=== PATIENT | male | born 1940 | race Caucasian/White ===

== ENCOUNTER 2017-04-23 20:04 | Inpatient (IN) | payer OTHER ==
[~2017-04-23] VITALS: Ht 172.7 cm; Wt 57.9 kg
[~2017-04-23 20:04] MED LIST: ADULT LOW DOSE81 M1 PO; ADVAIR 250/501 DISK IH; Advair HFA 115/21 IH; CEFTIN500 MG PO; HYZAAR 100-21 TABLET PO; LOSARTAN POTASS50 MG PO; PROVENTIL2.5 MG/3 M IH; SINGULAIR10 MG PO; SPIRIVA1 INHALATI IH; Singulair PO; Tylenol Regular Stre PO; Xopenex IH; Zithromax PO; predniSONE PO
[2017-04-23 21:14] LABS: HEMATOCRIT 45.7 % (38.0-50.0); HEMOGLOBIN 15.5 G/DL (12.5-16.6); MCH 31.4 PG (29.0-34.0); MCHC 33.9 G/DL (30.0-36.0); MCV 92.7 FL (86-99); PLATELET COUNT 191 K/uL (156-360); RBC DIS.WIDTH-CV 13.6 % (11.8-14.6); RBC DIS.WIDTH-SD 46.9 % (39-53); RED BLOOD COUNT 4.93 M/uL (4.00-5.50); WHITE BLOOD COUNT 27.3 K/uL (4.1-10.2)
[2017-04-23 21:30] LABS: CHLORIDE 90 MEQ/L (99-109); POTASSIUM 4.5 MEQ/L (3.7-5.4); SODIUM 130 MEQ/L (136-147)
[2017-04-23 21:36] LABS: CREATININE 1.3 MG/DL (0.6-1.3); GFR ESTIMATE (CALCULATED) 57 mL/min/ (58.99-99999); GLUCOSE 150 mg/dL (70-99); UREA NITROGEN (BUN) 25 mg/dL (9-23)
[2017-04-23 21:46] LABS: INTER. NORMALIZED RATIO 1.2
[2017-04-23 21:48] LABS: PTT 30.9 SEC (25-37)
[2017-04-23 22:06] LABS: TROP-I INTERPRETATION NEGATIVE; TROPONIN-I 0.02 ng/mL (0.0-0.30)
[2017-04-23] MEDS ORDERED: SINGULAIR10 MG PO (23:02)
[2017-04-23] MEDS ORDERED: ADVAIR 250/501 DISK IH (23:03)
[2017-04-23] MEDS ORDERED: ALLEGRA ALLERG180 MG PO (23:05)
[2017-04-23] MEDS ORDERED: SYSTANE 0.3-0.1 EACH BOTH EYES (23:05)
[2017-04-23] MEDS ORDERED: VITAMIN E400 UNIT PO (23:06)
[2017-04-23] MEDS ORDERED: SYSTANE GEL10 GM BOTH EYES (23:06)
[2017-04-23] MEDS ORDERED: GARLIC1000 MG PO (23:06)
[2017-04-23] MEDS ORDERED: CENTRUM SILVER1 EAC3 PO (23:07)
[2017-04-23] MEDS ORDERED: GLUCOSAMINE &1 EAC1 PO (23:08)
[2017-04-23] MEDS ORDERED: OMEGA 3 500 SO1 EACH PO (23:08)
[2017-04-24 00:42] VITALS: BP 126/61
[2017-04-24 04:37] VITALS: BP 140/65
[2017-04-24 06:52] LABS: HEMATOCRIT 39.7 % (38.0-50.0); MCH 31.2 PG (29.0-34.0); MCHC 33.5 G/DL (30.0-36.0); MCV 93.2 FL (86-99); PLATELET COUNT 150 K/uL (156-360); RBC DIS.WIDTH-CV 13.8 % (11.8-14.6); RBC DIS.WIDTH-SD 46.5 % (39-53); RED BLOOD COUNT 4.26 M/uL (4.00-5.50)
[2017-04-24 06:53] LABS: HEMOGLOBIN 13.3 G/DL (12.5-16.6)
[2017-04-24 07:18] LABS: ALBUMIN 3.2 G/DL (3.2-4.8); ALKALINE PHOSPHATASE 68 IU/L (3-129); ALT (GPT) 12 IU/L (3-49); AST (GOT) 13 IU/L (2-34); CHLORIDE 98 MEQ/L (99-109); GFR ESTIMATE (CALCULATED) > 59 mL/min/ (58.99-99999); GLUCOSE 84 mg/dL (70-99); POTASSIUM 4.1 MEQ/L (3.7-5.4); SODIUM 137 MEQ/L (136-147); TOTAL BILIRUBIN 0.6 MG/DL (0.0-1.0); TOTAL PROTEIN 5.2 G/DL (6.4-8.3); UREA NITROGEN (BUN) 21 mg/dL (9-23)
[2017-04-24 07:47] VITALS: BP 98/57
[2017-04-24 10:46] LABS: HEMOGLOBIN A1c (GLYCOHEMOGLOB) 5.9 % (Below 5.7)
[2017-04-24 12:27] VITALS: BP 115/71
[2017-04-24 17:00] VITALS: BP 132/72
[2017-04-24 21:30] VITALS: BP 111/59
[2017-04-25] VITALS (9 sets, daily range): BP systolic 115–150; BP diastolic 64–102
[2017-04-25 07:07] LABS: BASOPHIL (%) 0.1 % (0-1); EOSINOPHIL (%) 0 % (0-5); HEMATOCRIT 40.2 % (38.0-50.0); HEMOGLOBIN 13.2 G/DL (12.5-16.6); IMMATURE GRANULOCYTE (%) 0.6 % (0.0-0.7); LYMPHOCYTE (%) 4.8 % (15-42); LYMPHOCYTE COUNT 0.4 K/uL (1.0-2.8); MCHC 32.8 G/DL (30.0-36.0); MCV 94.4 FL (86-99); MONOCYTE (%) 2.4 % (3-12); MONOCYTE COUNT 0.2 K/uL (0-0.8); NEUTROPHIL (%) 92.1 % (45-76); NEUTROPHIL COUNT 7.8 K/uL (1.8-6.4); PLATELET COUNT 143 K/uL (156-360); RBC DIS.WIDTH-CV 13.8 % (11.8-14.6); RBC DIS.WIDTH-SD 47.9 % (39-53); RED BLOOD COUNT 4.26 M/uL (4.00-5.50); WHITE BLOOD COUNT 8.4 K/uL (4.1-10.2)
[2017-04-25 07:41] LABS: CHLORIDE 101 MEQ/L (99-109); CREATININE 0.9 MG/DL (0.6-1.3); GFR ESTIMATE (CALCULATED) > 59 mL/min/ (58.99-99999); MAGNESIUM 1.8 mg/dl (1.3-2.7); POTASSIUM 4.5 MEQ/L (3.7-5.4); SODIUM 139 MEQ/L (136-147); UREA NITROGEN (BUN) 16 mg/dL (9-23)
[2017-04-25 07:43] LABS: GLUCOSE 158 mg/dL (70-99)
[2017-04-25 20:13] LABS: MAGNESIUM 1.9 mg/dl (1.3-2.7); POTASSIUM 4.3 MEQ/L (3.7-5.4)
[2017-04-25 20:14] LABS: TROP-I INTERPRETATION NEGATIVE; TROPONIN-I < 0.01 ng/mL (0.0-0.30)
[2017-04-25 21:23] LABS: THYROTROPIN (TSH) 0.15 MIU/L (0.4-5.5)
[2017-04-26] VITALS (9 sets, daily range): BP systolic 100–145; BP diastolic 63–93
[2017-04-26 03:42] LABS: TROP-I INTERPRETATION NEGATIVE; TROPONIN-I 0.01 ng/mL (0.0-0.30)
[2017-04-26 09:16] LABS: TROP-I INTERPRETATION NEGATIVE; TROPONIN-I < 0.01 ng/mL (0.0-0.30)
[2017-04-27 04:34] VITALS: BP 126/63
[2017-04-27 05:47] LABS: CHLORIDE 98 MEQ/L (99-109); CREATININE 0.9 MG/DL (0.6-1.3); GFR ESTIMATE (CALCULATED) > 59 mL/min/ (58.99-99999); GLUCOSE 148 mg/dL (70-99); SODIUM 138 MEQ/L (136-147); UREA NITROGEN (BUN) 28 mg/dL (9-23)
[2017-04-27 05:48] LABS: POTASSIUM 5.3 MEQ/L (3.7-5.4)
[2017-04-27 07:44] VITALS: BP 141/77
[2017-04-27 11:46] VITALS: BP 122/61
[2017-04-27 15:34] VITALS: BP 149/70
[2017-04-27 19:07] VITALS: BP 163/70
[2017-04-27 21:16] VITALS: BP 160/82
[2017-04-28] VITALS (7 sets, daily range): BP systolic 124–162; BP diastolic 66–80
[2017-04-28 06:24] LABS: CHLORIDE 99 MEQ/L (99-109); CREATININE 0.9 MG/DL (0.6-1.3); GFR ESTIMATE (CALCULATED) > 59 mL/min/ (58.99-99999); GLUCOSE 174 mg/dL (70-99); POTASSIUM 4.9 MEQ/L (3.7-5.4); SODIUM 140 MEQ/L (136-147); UREA NITROGEN (BUN) 31 mg/dL (9-23)
[2017-04-29 03:25] VITALS: BP 137/71
[2017-04-29 06:37] LABS: HEMATOCRIT 39.6 % (38.0-50.0); HEMOGLOBIN 12.9 G/DL (12.5-16.6); MCH 31.2 PG (29.0-34.0); MCHC 32.6 G/DL (30.0-36.0); MCV 95.9 FL (86-99); RBC DIS.WIDTH-CV 13.2 % (11.8-14.6); RBC DIS.WIDTH-SD 46.9 % (39-53); RED BLOOD COUNT 4.13 M/uL (4.00-5.50); WHITE BLOOD COUNT 18.6 K/uL (4.1-10.2)
[2017-04-29 07:05] LABS: PLAT.SUFFICIENCY ADEQUATE
[2017-04-29 07:10] LABS: PLATELET COUNT 207 K/uL (156-360)
[2017-04-29 07:15] LABS: CHLORIDE 96 MEQ/L (99-109); GFR ESTIMATE (CALCULATED) > 59 mL/min/ (58.99-99999); GLUCOSE 147 mg/dL (70-99); POTASSIUM 5.2 MEQ/L (3.7-5.4); SODIUM 140 MEQ/L (136-147); UREA NITROGEN (BUN) 29 mg/dL (9-23)
[2017-04-29 07:27] VITALS: BP 129/64
[2017-04-29 11:47] VITALS: BP 121/61
[2017-04-29 15:40] VITALS: BP 152/70
[2017-04-29 20:02] VITALS: BP 156/72
[2017-04-30 00:02] VITALS: BP 168/88
[2017-04-30 03:56] VITALS: BP 158/82
[2017-04-30 08:18] VITALS: BP 159/70
[2017-04-30] MEDS ORDERED: DIGOXIN125 MCG PO (11:31)
[2017-04-30] MEDS ORDERED: ELIQUIS5 MG PO (11:31)
[2017-04-30] MEDS ORDERED: DILTIAZEM 24HR240 MG PO (11:31)
[2017-04-30] MEDS ORDERED: CEFDINIR300 MG PO (11:35)
[2017-04-30] MEDS ORDERED: PREDNISONE5 MG PO (11:35)
[2017-04-30 12:00] VITALS: BP 145/70
== END 2017-04-30 16:56 | disposition home health service (06) | DRG 871 ==
LOC: EME 20:04 → EDOF 21:57 → 5SOUTH 21:57 → ENRESERV 21:59 → 5SOUTH 04-24 00:14 → ENRESERV 04-25 20:17 → 4EAST 04-25 20:23 → ENRESERV 04-27 17:03 → 2EASTP 04-27 21:06
PROVIDERS: Emergency Medicine; Hospitalist; Internal Medicine; Physician Assistant
DX: A41.9 Sepsis, unspecified organism (principal); J18.9 Pneumonia, unspecified organism; N17.9 Acute kidney failure, unspecified; J96.01 Acute respiratory failure with hypoxia; E87.1 Hypo-osmolality and hyponatremia; I48.0 Paroxysmal atrial fibrillation; J44.0 Chronic obstructive pulmonary disease with (acute) lower respiratory infection; J44.1 Chronic obstructive pulmonary disease with (acute) exacerbation; Z68.1 Body mass index [BMI] 19.9 or less, adult; R73.01 Impaired fasting glucose; R73.9 Hyperglycemia, unspecified; I10 Essential (primary) hypertension; Z82.49 Family history of ischemic heart disease and other diseases of the circulatory system; Z87.891 Personal history of nicotine dependence
CPT/HCPCS: 71045; 71046; 80048; 80053; 82948; 83036; 83605; 83735; 83880; 84132 91; 84443; 84484; 85025; 85027; 85610; 85730; 87040; 87070; 87205; 87449; 87502; 93005; 93306; 94010; 94640; 94640 76; 94799; 99202; 99281; 99284; J0456; J0696; J1160; J1644; J1650; J2405; J2920; J7030; J7050; J7512